=== PATIENT | male | born 1990 | race Caucasian/White ===

== ENCOUNTER 2019-01-27 21:04 | Inpatient (IN) | payer OTHER ==
[~2019-01-27] VITALS: Ht 182.8 cm; Wt 72.7 kg
[~2019-01-27 21:04] MED LIST: MEDROL DOSEPAK4 MG PO
[2019-01-27 21:08] VITALS: BP 122/80
[2019-01-27 22:08] LABS: BASO % 0.4 % (0.0-1.0); EOS # 0.1 10*3/uL (0.0-0.4); EOS % 0.6 % (1.0-4.0); HEMATOCRIT 39.2 % (42.0-52.0); HEMOGLOBIN 13.1 g/dl (14.0-18.0); LYMPH # 1.5 10*3/uL (1.3-4.4); LYMPH % 14.3 % (27.0-41.0); MEAN CELL VOLUME 92.2 fl (80.0-94.0); MEAN CORPUSCULAR HGB 30.8 pg (27.0-31.0); MEAN CORPUSCULAR HGB CONC 33.4 g/dl (33.0-37.0); MEAN PLATELET VOLUME 9.9 fl (9.6-12.3); MONO # 0.9 10*3/uL (0.1-1.0); MONO % 8.7 % (3.0-9.0); NEUT % 75.7 % (47.0-73.0); PLATELET COUNT AUTOMATED 183 10*3/uL (130-400); RED BLOOD COUNT 4.25 10*6/uL (4.50-5.90); RED CELL DISTRI WIDTH 12.2 % (0-14.5); WHITE BLOOD COUNT 10.5 10*3/uL (4.8-10.8)
[2019-01-28] LABS: ALBUMIN 4.3 gm/dl (3.1-4.5); ALKALINE PHOSPHATASE 60 U/L (45-117); BUN 13 mg/dl (7-24); CHLORIDE 106 mmol/L (98-107); CREATININE 1.01 mg/dL (0.70-1.30); POTASSIUM 3.3 mmol/L (3.5-5.1); SGOT/AST 13 IU/L (3-35); SGPT/ALT 21 U/L (12-78); SODIUM 140 mmol/L (136-145); TOTAL PROTEIN 7.5 gm/dL (6.4-8.2)
--- NOTE | 2019-01-28 01:06 | NUR ---
PATIENT REFUSED WOUND PHOTOS
--- NOTE | 2019-01-28 01:12 | NUR ---
A 28, admitted to , under the services of MARIANELA Cowart DO with a diagnosis of HUMAN BITE. Chief complaint is HUMAN BITE. Patient arrived via stretcher from ER. Monitor applied. Initial assessment completed. Vital signs taken and recorded. MARIANELA COWART DO notified of admission to the unit. Orders received. See assessment for past medical history, medications and allergies. Patient and/or family oriented to unit. [facility] visitation policy reviewed. Clothing/patient valuable form completed. TONI PORRAS
[2019-01-28 01:20] VITALS: BP 135/81
[2019-01-28] MEDS ORDERED: IBU600 M1 PO (01:21)
--- NOTE | 2019-01-28 01:25 | NUR ---
PATIENT REFUSING WOUND PHOTOS AND HEART MONITOR
--- NOTE | 2019-01-28 02:16 | NUR ---
PREVIOUS PAIN MEDICATION IS EFFECTIVE PER PATIENT
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
--- NOTE | 2019-01-28 05:52 | NUR ---
MEDICATED WITH PRN MORPHINE FOR C/O PAIN IN RIGHT HAND RATED 8/10 ON A 0/10 PAIN SCALE. WILL MONITOR
[2019-01-28 06:22] LABS: BASO % 0.4 % (0.0-1.0); EOS # 0.1 10*3/uL (0.0-0.4); EOS % 0.7 % (1.0-4.0); HEMATOCRIT 38.7 % (42.0-52.0); HEMOGLOBIN 13.1 g/dl (14.0-18.0); LYMPH # 1.7 10*3/uL (1.3-4.4); LYMPH % 18.9 % (27.0-41.0); MEAN CELL VOLUME 90.8 fl (80.0-94.0); MEAN CORPUSCULAR HGB 30.8 pg (27.0-31.0); MEAN CORPUSCULAR HGB CONC 33.9 g/dl (33.0-37.0); MEAN PLATELET VOLUME 9.8 fl (9.6-12.3); MONO # 0.7 10*3/uL (0.1-1.0); MONO % 7.6 % (3.0-9.0); NEUT # 6.4 10*3/uL (2.3-7.9); NEUT % 72.2 % (47.0-73.0); PLATELET COUNT AUTOMATED 188 10*3/uL (130-400); RED BLOOD COUNT 4.26 10*6/uL (4.50-5.90); RED CELL DISTRI WIDTH 12.2 % (0-14.5); WHITE BLOOD COUNT 8.9 10*3/uL (4.8-10.8)
[2019-01-28 06:35] LABS: BUN 11 mg/dl (7-24); CHLORIDE 104 mmol/L (98-107); CHOLESTEROL 118 mg/dL (<200); CREATININE 0.79 mg/dL (0.70-1.30); FREE T4 1.25 ng/dl (0.76-1.46); HDL CHOLESTEROL 44 mg/dl (40-60); LDL CHOLESTEROL 63 mg/dL (9-159); PHOSPHOROUS 2.8 mg/dL (2.5-4.9); POTASSIUM 4.1 mmol/L (3.5-5.1); SGOT/AST 11 IU/L (3-35); SGPT/ALT 21 U/L (12-78); SODIUM 138 mmol/L (136-145); TOTAL PROTEIN 7.2 gm/dL (6.4-8.2); TRIGLYCERIDES 53 mg/dl (<150); VLDL CHOLESTEROL 11 mg/dL (6-40)
[2019-01-28 06:43] LABS: ALKALINE PHOSPHATASE 56 U/L (45-117)
[2019-01-28 06:56] LABS: ACT PARTIAL THROMBO TIME 29.3 SECONDS (20.0-32.1)
--- NOTE | 2019-01-28 08:00 | NUR ---
PT SITTING UP AT SIDE OF BED. RESP-EASY AND REGULAR. NO C/O AT THIS TIME. IVF INFUSING WITH NO PROBLEM. CALL LIGHT IN REACH. SEE SHIFT ASSESSMENT.
[2019-01-28 08:08] LABS: VITAMIN D, 25-HYDROXY 21.4 ng/mL (30-100)
[2019-01-28 08:15] VITALS: BP 120/74
--- NOTE | 2019-01-28 10:00 | NUR ---
TOLERATING IV MEDICATION WITH NO PROBLEM. CALL LIGHT IN REACH.
--- NOTE | 2019-01-28 10:24 | NUR ---
Dr. Aldrich notified of wound care recommendations.
--- NOTE | 2019-01-28 10:42 | NUR ---
PT C/O RIGHT HAND PAIN, RATES PAIN 7 OR 8 ON PAIN SCALE 0-10. MEDICATED WITH NORCO PO PER PRN ORDER, SEE EMAR. CALL LIGHT IN REACH.
--- NOTE | 2019-01-28 11:30 | NUR ---
RESTING IN BED. STATES PAIN MEDICATION HELPS. CALL LIGHT IN REACH.
[2019-01-28 12:00] VITALS: BP 127/76
--- NOTE | 2019-01-28 13:06 | NUR ---
DR. ALAMO ON THE FLOOR PUT SPLINT AND SANTA WRAP ON PT HAND.
--- NOTE | 2019-01-28 14:41 | NUR ---
CALLED DR. DE OLIVEIRA FOR SMOKING PATCH PER PT REQUEST.
--- NOTE | 2019-01-28 14:45 | NUR ---
DR. HIGHTOWER INTO SEE PT.
--- NOTE | 2019-01-28 15:33 | NUR ---
APPLIED NICOTINE PATCH PER PT REQUEST.
[2019-01-28 16:00] VITALS: BP 125/71
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
--- NOTE | 2019-01-28 16:10 | NUR ---
PT RESTING IN BED. NO C/O AT THIS TIME. CALL LIGHT IN REACH. SEE SHIFT ASSESSMENT.
--- NOTE | 2019-01-28 18:20 | NUR ---
PT C/O RIGHT HAND PAIN, RATES PAIN 7 1/2 ON PAIN SCALE 0-10. MEDICATED WITH NORCO PO PER PRN ORDER, SEE EMAR. CALL LIGHT IN REACH.
--- NOTE | 2019-01-28 19:00 | NUR ---
AMBULATORY IN ROOM. STATES PAIN MEDICATION HELPS. CALL LIGHT IN REACH.
[2019-01-28 20:00] VITALS: BP 123/72
[2019-01-29] VITALS: BP 123/76
--- NOTE | 2019-01-29 02:18 | NUR ---
24 HR chart check completed.
--- NOTE | 2019-01-29 03:20 | NUR ---
MEDICATED WITH PRN NORCO FOR C/O PAIN IN RIGHT HAND RATED 7/10 ON A 0/10 PAIN SCALE
--- NOTE | 2019-01-29 07:45 | NUR ---
PT AMBULATORY IN THE ROOM. SPLINT TO RIGHT HAND. NO C/O AT THIS TIME. CALL LIGHT IN REACH. SEE SHIFT ASSESSMENT.
[2019-01-29 08:00] VITALS: BP 144/86
[2019-01-29 08:10] LABS: HEPATITIS B SURFACE AG Negative (Negative); HEPATITIS C VIRUS ANTIBODY 0.1 s/co (0.0-0.9)
--- NOTE | 2019-01-29 08:45 | NUR ---
C/O RIGHT HAND PAIN, RATES PAIN 5 OR 6 ON PAIN SCALE 0-10. MEDICATED WITH NORCO PO PER PRN ORDER, SEE EMAR. CALL LIGHT IN REACH.
[2019-01-29 12:00] VITALS: BP 130/80
--- NOTE | 2019-01-29 13:54 | NUR ---
[employer] Manager in to talk to patient. Patient states lives at HOME with GIRLFRIEND. There are OUTSIDE steps in the home. Physician: NONE WANTS TO FOLLOW UP WITH [facility] Home health services: NONE Patient's level of ADLs: INDEPENDENT Patient has working utilities: YES DME: NONE Follow-up physician's appointment after d/c: WILL BE MADE BY HOSPITALIST NURSE DIRECTOR ON DISCHARGE Does patient want to access PORTAL?: NO Discharge plan PT STATES HE WILL RETURN HOME WITH NO NEEDS ON DISCHARG. WILL CONTINUE TO FOLLOW. WILL HAVE A RIDE HOME.MACIE SCHRADER
--- NOTE | 2019-01-29 14:19 | NUR ---
C/O RIGHT HAND PAIN RATES PAIN 9 ON PAIN SCALE 0-10. MEDICATED WITH NORCO PO PER PRN ORDER, SEE EMAR. CALL LIGHT IN REACH.
--- NOTE | 2019-01-29 15:10 | NUR ---
SITTING UP IN BED. STATES MEDICATION HELPS. CALL LIGHT IN REACH.
[2019-01-29 16:00] VITALS: BP 131/87
--- NOTE | 2019-01-29 16:30 | NUR ---
PT SITTING UP IN BED. RESP-EASY AND REGULAR. NO C/O AT THIS TIME. CALL LIGHT IN REACH. SEE SHIFT ASSESSMENT.
[2019-01-29 20:00] VITALS: BP 132/78
--- NOTE | 2019-01-29 21:30 | NUR ---
PATIENT C/O PAIN TO RIGHT HAND. RATED PAIN A 8.5/10 WITH 10 BEING THE WORST. SEE EMAR. REINFORCED USE OF CALL LIGHT.
[2019-01-30] VITALS: BP 115/62
--- NOTE | 2019-01-30 02:44 | NUR ---
24 HR chart check completed.
--- NOTE | 2019-01-30 02:53 | NUR ---
PATIENT MEDICATED WITH NORCO PER PRN ORDER FOR C/O R HAND PAIN. RATED PAIN A 8.5/10 WITH 10 BEING THE WORST. SEE EMAR. REINFORCED USE OF CALL LIGHT.
[2019-01-30 08:00] VITALS: BP 144/90
--- NOTE | 2019-01-30 10:10 | NUR ---
PATIENT RECEIVED NORCO FOR PAIN IN HAND RATED 8/10.
[2019-01-30 12:00] VITALS: BP 128/87
--- NOTE | 2019-01-30 12:22 | NUR ---
PT STATES HE WILL RETURN HOME ON DISCHARGE WITH NO NEEDS. WILL CONTINUE TO FOLLOW.
--- NOTE | 2019-01-30 15:44 | NUR ---
Dr Mcginnis called OTR to request compression glove for right hand edema. Discussion of patient's right hand injury and condition. Doctor will also send an OT referral for OT. Afia Boewn OTR/tawanna
[2019-01-30 16:00] VITALS: BP 132/84
--- NOTE | 2019-01-30 16:22 | NUR ---
PATIENT RECEIVED NORCO PAIN IN RIGHT HAND RATED 9/10.
[2019-01-30 20:00] VITALS: BP 126/74
[2019-01-31] VITALS (12 sets, daily range): BP systolic 107–137; BP diastolic 64–94
--- NOTE | 2019-01-31 02:10 | NUR ---
JANINEN MEDICATED WITH NORCO PER PRN ORDER FOR C/O PAIN. RATED PAIN A 5/10 WITH 10 BEING THE WORST. SEE EMAR. REINFORCED USE OF CALL LIGHT.
--- NOTE | 2019-01-31 03:30 | NUR ---
PATIENT RESTING QUIETLY. NO FURTHER C/O VOICED.
[2019-01-31 06:22] LABS: BASO % 0.6 % (0.0-1.0); EOS # 0.2 10*3/uL (0.0-0.4); EOS % 3.9 % (1.0-4.0); HEMATOCRIT 44.3 % (42.0-52.0); HEMOGLOBIN 14.9 g/dl (14.0-18.0); LYMPH # 2.2 10*3/uL (1.3-4.4); LYMPH % 34.8 % (27.0-41.0); MEAN CELL VOLUME 91.2 fl (80.0-94.0); MEAN CORPUSCULAR HGB 30.7 pg (27.0-31.0); MEAN CORPUSCULAR HGB CONC 33.6 g/dl (33.0-37.0); MONO # 0.7 10*3/uL (0.1-1.0); MONO % 10.7 % (3.0-9.0); NEUT # 3.1 10*3/uL (2.3-7.9); NEUT % 49.8 % (47.0-73.0); PLATELET COUNT AUTOMATED 234 10*3/uL (130-400); RED BLOOD COUNT 4.86 10*6/uL (4.50-5.90); WHITE BLOOD COUNT 6.2 10*3/uL (4.8-10.8)
[2019-01-31 06:27] LABS: BUN 14 mg/dl (7-24); CHLORIDE 104 mmol/L (98-107); CREATININE 0.98 mg/dL (0.70-1.30); POTASSIUM 4.3 mmol/L (3.5-5.1); SODIUM 138 mmol/L (136-145)
--- NOTE | 2019-01-31 09:20 | NUR ---
Occupational Therapy evaluation completed on 5 with full eval to follow. Dr. Mcginnis requests OT eval and treat for fit of compression glove to right hand. Patient fitted with medium compression glove. Dorsal hand inspection with scab over bite/wound near 3rd digit. OTR removed right scout bandage and splint to apply compression glove then re-applied splint and scout wrap informing nurse of compression application and removal of glove for hygiene. Dr. Mcginnis nurse informed of compression glove application. Patient awaiting MRI to determine further care of hand. Recommend OT treatment when patient is permitted more activity. OT to monitor compression glove and provide appropriate education re: elevation of right hand until d/c. Thank you. Afia Bowen OTR/Audrey
--- NOTE | 2019-01-31 12:34 | NUR ---
PT CONTINUES TO DENY NEEDS ON DISCHARGE. WILL CONTINUE TO FOLLOW.
[2019-02-01] VITALS: BP 115/68
[2019-02-01 04:00] VITALS: BP 107/66
[2019-02-01 06:44] LABS: BASO % 0.7 % (0.0-1.0); EOS # 0.2 10*3/uL (0.0-0.4); HEMATOCRIT 39.5 % (42.0-52.0); HEMOGLOBIN 13.1 g/dl (14.0-18.0); LYMPH # 1.7 10*3/uL (1.3-4.4); LYMPH % 27.7 % (27.0-41.0); MEAN CELL VOLUME 90.8 fl (80.0-94.0); MEAN CORPUSCULAR HGB 30.1 pg (27.0-31.0); MEAN CORPUSCULAR HGB CONC 33.2 g/dl (33.0-37.0); MONO # 0.7 10*3/uL (0.1-1.0); NEUT # 3.4 10*3/uL (2.3-7.9); NEUT % 57.4 % (47.0-73.0); PLATELET COUNT AUTOMATED 198 10*3/uL (130-400); RED BLOOD COUNT 4.35 10*6/uL (4.50-5.90); RED CELL DISTRI WIDTH 11.9 % (0-14.5)
[2019-02-01 07:04] LABS: BUN 18 mg/dl (7-24); CHLORIDE 105 mmol/L (98-107); SODIUM 139 mmol/L (136-145)
[2019-02-01 08:00] VITALS: BP 120/93
--- NOTE | 2019-02-01 09:51 | NUR ---
TYLENOL GIVEN FOR C/O RT HAND DISCOMFORT. WILL MONITOR.
--- NOTE | 2019-02-01 11:00 | NUR ---
TYLENOL EFFECTIVE PER PT.
[2019-02-01 12:00] VITALS: BP 120/82
--- NOTE | 2019-02-01 13:56 | NUR ---
NORCO GIVEN FOR C/O RT HAND PAIN. RATES 8/10 ON PAIN SCALE. WILL MONITOR.
--- NOTE | 2019-02-01 15:00 | NUR ---
HIRAM EFFECTIVE PER PT.
[2019-02-01 16:00] VITALS: BP 125/84
[2019-02-01 20:00] VITALS: BP 136/72
--- NOTE | 2019-02-01 20:35 | NUR ---
PT GIVEN NORCO AT THIS TIME FOR C/O PAIN TO RIGHT ARM. PT STATES THAT PAIN IS A "7". WILL MONITOR FOR EFFECTIVENESS. PT LYING IN BED. RESPIRATIONS EASY AND UNLABORED. NO OTHER COMPLAINTS VOICED BY PT AT THIS TIME.CALL LIGHT IN REACH.
--- NOTE | 2019-02-01 21:35 | NUR ---
NORCO EFFECTIVE AT THIS TIME PER PT.
--- NOTE | 2019-02-01 22:32 | NUR ---
PT GIVEN 2 MG MORPHINE AT THIS TIME FOR C/O PAIN TO LEFT ARM. PT RATES PAIN AN "8". WILL MONITOR FOR EFFECTIVENESS. PT RESTING IN BED. DRESSING TO RIGHT ARE C/D/I. CALL LIGHT IN REACH.
--- NOTE | 2019-02-01 23:32 | NUR ---
PT STATES THAT MORPHINE IS EFFECTIVE FOR PAIN TO RIGHT ARM.
[2019-02-02] VITALS: BP 118/66
--- NOTE | 2019-02-02 06:17 | NUR ---
AM ANTIBIOTIC INFUSING AT THIS TIME. IV SITE TO RIGHT ARM PATENT, FLUSHING WITH GOOD BLOOD RETURN. PT DENIES PAIN AT THIS TIME. WILL CONTINUE TO MONITOR. CALL LIGHT IN REACH.
--- NOTE | 2019-02-02 07:02 | NUR ---
MORPHINE 2 MG GIVEN AT THIS TIME FOR PAIN TO RIGHT HAND. WILL MONITOR FOR EFFECTIVENESS. CALL [facility] IN REACH.
[2019-02-02 07:44] LABS: BASO % 0.8 % (0.0-1.0); EOS # 0.2 10*3/uL (0.0-0.4); EOS % 3.1 % (1.0-4.0); HEMATOCRIT 39.7 % (42.0-52.0); HEMOGLOBIN 13.1 g/dl (14.0-18.0); LYMPH # 1.3 10*3/uL (1.3-4.4); LYMPH % 27.1 % (27.0-41.0); MEAN CELL VOLUME 90.8 fl (80.0-94.0); MEAN PLATELET VOLUME 9.9 fl (9.6-12.3); MONO # 0.4 10*3/uL (0.1-1.0); MONO % 7.7 % (3.0-9.0); NEUT # 2.9 10*3/uL (2.3-7.9); NEUT % 61.3 % (47.0-73.0); PLATELET COUNT AUTOMATED 209 10*3/uL (130-400); RED BLOOD COUNT 4.37 10*6/uL (4.50-5.90); RED CELL DISTRI WIDTH 11.9 % (0-14.5); WHITE BLOOD COUNT 4.8 10*3/uL (4.8-10.8)
[2019-02-02 08:00] VITALS: BP 123/70
[2019-02-02 08:04] LABS: BUN 14 mg/dl (7-24); CHLORIDE 108 mmol/L (98-107); CREATININE 0.88 mg/dL (0.70-1.30); POTASSIUM 3.8 mmol/L (3.5-5.1); SODIUM 140 mmol/L (136-145)
[2019-02-02 16:00] VITALS: BP 126/73
--- NOTE | 2019-02-02 18:38 | NUR ---
AIDED DR. ALAMO WITH DRESSING CHANGE TO R HAND. PT TOLERATED WELL. ID DISCUSSED WITH PATIENT ON PLAN TO DISCHARGE WITH LINE AND COME BACK FOR IV FLUIDS DAILY.
[2019-02-02 20:00] VITALS: BP 131/69
--- NOTE | 2019-02-02 21:12 | NUR ---
Neurological: AAOX3 Respiratory: NONLABORED, ROOM AIR Breath sounds: CLEAR T/O Cough: NONE PER ASSESSMENT Cardiovascular: HRR, DENIES CP/PRESSURE, NO EDEMA, PPP Gastrointestinal: NORMOACTIVE X4 QUADS, DENIES N/V/D/C, ABD SOFT/NT/ND Genito/Urinary: DENIES DYSURIA Musculoskeketal: AMBULATORY, GAIT STEADY, BULKY SURGICAL DRESSING RT. HAND DRY AND INTACT PATIENT IS RESTING IN BED WITH EASY AND REGULAR RESPERS ON ROOM AIR. ASSESSMENT IS COMPLETE WITH NO S/S OF DISTRESS NOTED AT THIS TIME. PATIENT DOES C/O RIGHT HAND PAIN/SORENESS RATING A 5/10. PRN NORCO PROVIDED. BED IS LOW, LOCKED, AND CALL LIGHT IS WITHIN REACH. WILL CONTINUE TO MONITOR. MISSY AVELAR A
--- NOTE | 2019-02-02 22:00 | NUR ---
PRN NORCO EFFECTIVE PER PATIENT.
[2019-02-03] VITALS: BP 120/64
--- NOTE | 2019-02-03 04:54 | NUR ---
Patient sleeping. Respirations relaxed and easy. MISSY AVELAR.
--- NOTE | 2019-02-03 05:26 | NUR ---
PATIENT AROUSES EASILY FOR ADMINISTRATION OF AM MEDICATION. DENIES C/O AT THIS TIME. CALL LIGHT IS WITHIN REACH.
--- NOTE | 2019-02-03 06:15 | NUR ---
24 HR chart check completed.
--- NOTE | 2019-02-03 06:25 | NUR ---
PRN NORCO GIVEN AT THIS TIME FOR PATIENT C/O PAIN TO RIGHT HAND RATING A 5/10. CALL LIGHT IS WITHIN REACH, WILL MONITOR EFFECT.
[2019-02-03 06:34] LABS: BASO % 0.8 % (0.0-1.0); EOS # 0.2 10*3/uL (0.0-0.4); EOS % 3.8 % (1.0-4.0); HEMATOCRIT 38.6 % (42.0-52.0); HEMOGLOBIN 13.1 g/dl (14.0-18.0); LYMPH # 1.6 10*3/uL (1.3-4.4); LYMPH % 33.1 % (27.0-41.0); MEAN CELL VOLUME 90.2 fl (80.0-94.0); MEAN CORPUSCULAR HGB 30.6 pg (27.0-31.0); MEAN CORPUSCULAR HGB CONC 33.9 g/dl (33.0-37.0); MEAN PLATELET VOLUME 9.7 fl (9.6-12.3); MONO # 0.5 10*3/uL (0.1-1.0); MONO % 10.7 % (3.0-9.0); NEUT # 2.4 10*3/uL (2.3-7.9); NEUT % 51.4 % (47.0-73.0); PLATELET COUNT AUTOMATED 199 10*3/uL (130-400); RED BLOOD COUNT 4.28 10*6/uL (4.50-5.90); RED CELL DISTRI WIDTH 11.9 % (0-14.5); WHITE BLOOD COUNT 4.8 10*3/uL (4.8-10.8)
[2019-02-03 06:47] LABS: BUN 17 mg/dl (7-24); CHLORIDE 108 mmol/L (98-107); CREATININE 0.87 mg/dL (0.70-1.30); POTASSIUM 3.8 mmol/L (3.5-5.1); SODIUM 138 mmol/L (136-145)
[2019-02-03 08:00] VITALS: BP 121/61
--- NOTE | 2019-02-03 08:19 | NUR ---
OT NOTE Pt was seen this A.M. 1:1 for 12 minute OT session. Upon arrival pt was sitting upright on the EOB eating his breakfast. Pt identified by name and and had no complaints at this time. Pt presented to therapy with wrapping on RUE and elevated on wedge and pillow on tray table. Unable to complete compression glove fitting due to wrapping. Pt was educated on edema control via elevation. Pt verbalized understanding and was able to teach back with 100% accuracy. Pt was left sitting upright on the EOB with call light in hand. Continue with rec D/C plan to outpatient OT as needed. TARA Reid/Audrey
--- NOTE | 2019-02-03 10:58 | NUR ---
PT C/O PAIN TO RIGHT ARM OF 11/23. NORCO GIVEN AT THIS TIME. WILL CONT TO MONITOR. CALL LIGHT IN REACH.
--- NOTE | 2019-02-03 11:49 | NUR ---
PER DR HIGHTOWER PICC LINE IS ABSOLUTELY NECESSARY.
--- NOTE | 2019-02-03 11:55 | NUR ---
Occupational THerapy referral received s/p 01/31/19 right extensor tendon rupture 3rd digit repair. Patient has a bulky dressing on RUE. OTR spoke with Dr Mcginnis who did not have any further AROM requests. OTR informed that patient could go to outpatient for any further hand therapy needs. Patient is aware of need to elevate RUE. Discharge OT at this time. Thank you. Afia Bowen OTR/tawanna
--- NOTE | 2019-02-03 11:58 | NUR ---
HIRAM EFF. WILL CONT TO MONITOR. CALL LIGHT IN REACH.
[2019-02-03 12:00] VITALS: BP 117/69; BP 136/89
[2019-02-03] MEDS ORDERED: DOXYCYCLINE100 M3 PO (14:53)
[2019-02-03] MEDS ORDERED: ERTAPENEM1 GM IM (14:54)
[2019-02-03] MEDS ORDERED: HYDROCODONE-AC1 EAC1 PO (15:10)
--- NOTE | 2019-02-03 15:19 | NUR ---
case managment received a call that patient is being discharged to home and outpatient iv antibiotics need set up, contacted Jewell in central scheduling, patient is scheduled to come to the hospital as an outpatient starting tomorrow at 10am, patient will need to come into the hospital for 28 days. called pharmacy and notified them that patient would be starting iv therapy with ertepenam tomorrow, script faxed to central scheduling and also pharmacy, educated patient on the time he would need to come into the hospital to receive his iv antibiotics, also informed him that his po antibiotic was send to pharmacy and he would need to pick it up when he was discharged, patient verbalized understanding
--- NOTE | 2019-02-03 17:29 | NUR ---
PT DISCHARGED AT THIS TIME. IV HEPLOCK REMOVED AND PRESSURE DRESSING APPLIED. VERBALIZED UNDERSTANDING OF DISCHARGE INSTRUCTIONS. NO DISCHARGE PHOTOS TAKEN DUE TO DRESSING IN PLACE FROM SURGERY. ORDERS NOT TO REMOVE.
== END 2019-02-03 17:29 | disposition home or self-care (01) | DRG 580 ==
LOC: ED 21:04 → EDHOLD 01-28 00:17 → 5E 01-28 00:17
PROVIDERS: Emergency Medicine; Internal Medicine; Student in an Organized Health Care Education/Training Program; ADMIT Internal Medicine
PROC: 0LQ70ZZ Repair Right Hand Tendon, Open Approach (ICD-10-PCS; principal; 2019-01-31)
PROC: B5181ZA Fluoroscopy of Superior Vena Cava using Low Osmolar Contrast, Guidance (ICD-10-PCS; 2019-02-03)
PROC: 02HV33Z Insertion of Infusion Device into Superior Vena Cava, Percutaneous Approach (ICD-10-PCS; 2019-02-03)
DX: L03.113 Cellulitis of right upper limb (principal); L02.511 Cutaneous abscess of right hand; E87.6 Hypokalemia; D64.9 Anemia, unspecified; F17.210 Nicotine dependence, cigarettes, uncomplicated; S66.911A Strain of unspecified muscle, fascia and tendon at wrist and hand level, right hand, initial encounter; W50.3XXA Accidental bite by another person, initial encounter; S61.451A Open bite of right hand, initial encounter; Z71.6 Tobacco abuse counseling; Y92.89 Other specified places as the place of occurrence of the external cause; Y93.89 Activity, other specified; Y99.8 Other external cause status